=== PATIENT | male | born 1990 | race Hispanic/Latino ===

== ENCOUNTER 2021-09-07 06:49 | Day surgery (SDC) | payer OTHER ==
[2021-09-07] VITALS (16 sets, daily range): BP systolic 102–124; BP diastolic 48–68
[~2021-09-07] VITALS: Ht 175.3 cm; Wt 68.0 kg
[~2021-09-07 06:49] MED LIST: 0.9%NACL 1000ML 1,000 ML IV ONE
[2021-09-07] MEDS: INDOMETHACIN 50 MG SUPP.RECT RC SCH ×2 (09:10→13:37)
[2021-09-07] MEDS ORDERED: PROPOFOL 10 MG/ML 20ML VIAL IV ONE (12:37)
[2021-09-07] MEDS ORDERED: FENTANYL CITRATE PF 50 MCG/1 ML 2ML VIAL ONE (12:37)
[2021-09-07] MEDS ORDERED: SUCCINYLCHOLINE 200MG/10ML SYR ONE (12:39)
[2021-09-07] MEDS ORDERED: IOHEXOL-350 50ML VIAL IV ONE (13:02)
[2021-09-07] MEDS ORDERED: INDOMETHACIN 50 MG SUPP.RECT RC ONE (13:37)
== END 2021-09-07 15:45 | disposition home or self-care (01) ==
LOC: DAH 06:49 → ENDO 06:49
PROVIDERS: ATTEND Internal Medicine
DX: Z46.59 Encounter for fitting and adjustment of other gastrointestinal appliance and device (principal); Z20.822 Contact with and (suspected) exposure to COVID-19; K83.1 Obstruction of bile duct; K83.09 Other cholangitis; F17.210 Nicotine dependence, cigarettes, uncomplicated
CPT/HCPCS: 43261; 43262; 43275; 74328; 87635; A4215 ×2; A4221; A4222; A4223; A4606; A4620; A4663; C1769; C1773; C9803; J0330; J2704; J3010; J7030; Q9967; 43273; 74330

== ENCOUNTER 2025-07-28 15:42 | Emergency (ER) | payer SELFPAY ==
[~2025-07-28] VITALS: Ht 175.3 cm; Wt 77.1 kg
--- NOTE | 2025-07-28 15:57 | ERN ---
ED Note History of Present Illness Stated Complaint: CONSTIPATION Chief Complaint: Constipation Time Seen by MD: 15:46 Dictation: PATIENT IS A 35-YEAR-OLD MALE COMING IN TODAY WITH COMPLAINTS OF ABDOMINAL BLOATING CONSTIPATION WITH HAVING SMALL HARD STOOLS FOR THE LAST 1-1/2 MONTHS. HE STATES IN THE LAST SEVERAL DAYS HE HAS HAD NAUSEA WITHOUT VOMITING HOWEVER HE CONTINUES TO EAT. HE STATES HE HAS NOT SEEN A PRIMARY CARE DOCTOR HAS NOT BEEN TO A HOSPITAL, CONTINUES TO EAT AND DRINK TOLERATED. ADDITIONALLY HE STATES HE HAS NOT TAKEN ANYTHING [id number] FOR CONSTIPATION. DENIES ANY HISTORY OF A BARIATRIC SURGERIES NO ABDOMINAL SURGERIES. Allergies: Coded Allergies: No Known Drug Allergies (Verified Allergy, Unknown, 09/07/21) Home Meds No Active Prescriptions or Reported Meds Past Medical History Past Medical History: No Pertinent History Surgical History: None RN Note Reviewed/Agreed w/PFSH: Yes Review of System Dictation CONSTITUTIONAL: Negative except for HPI HEAD/FACE: Negative except for HPI EENT: Negative except for HPI RESPIRATORY: Negative except for HPI GASTROINTESTINAL/ABDOMINAL: Negative except for HPI abdominal bloating/ GENITOURINARY: Negative except for HPI MUSCULOSKELETAL: Negative except for HPI INTEGUMENTARY: Negative except for HPI NEUROLOGICAL/PSYCH: Negative except for HPI HEMATOLOGIC/LYMPHATIC: Negative except for HPI All Systems Negative, Except as noted above. 13 point review of systems assessed and all negative except for above. Initial Vital Sign VS Vital Signs Date Time Temp Pulse Resp B/P (MAP) Pulse Ox O2 Delivery O2 Flow Rate FiO2 07/28/25 15:43 98.1 76 16 118/68 100 Room Air 0 Physical Exam Dictation Vital Signs reviewed General Appearance: Alert, oriented x 3, mild acute distress, well developed, nourished. Head and Face: non-traumatic. Eyes: PERRL, pink conjunctivas, eyelid no trauma, anterior chamber with arcus senilis. Ears: Pinnas intact and no signs of trauma or erythema ear canals clear and no discharge TM no erythema Nose: No discharge, no bleeding. Oropharynx: Mouth normal, tongue pink, pharynx clear,no erythema, tonsils no exudates, no abscesses noted, mucous mem brane moist Neck: Supple, non-tender, no thyromegaly, no masses, no JVD, no bruits Breast:Deferred Chest:No tenderness, no crepitus, no paradoxical movement, no retractions Lungs:Clear, well-ventilated, symmetric, no rales, no wheezing, no rhonchi, no stridor, good breath sounds bilaterally Heart: Regular rate, regular rhythm, no murmur, no gallops Vascular: no peripheral edema, Abdomen: Soft, hypoactive bowel sounds, nondistended, no guarding, nontender, no rebound, no masses no hepatomegaly, no splenomegaly, no Salcedo's sign, no hernias. Rectal: Deferred Genital: Deferred Neurological: Normal speech, motor function intact, sensory function intact Musculoskeletal: Neck nontender, full range of motion, back nontender, full ran ge of motion, Extremities: nontender, full range of motion Skin: Color pink, dry, no turgor, no rash, no lacerations, no abrasions, no contusions. Lymphatic: Deferred Results (Laboratory/Radiology) Laboratory/Radiology Laboratory Tests Test 07/28/25 16:03 07/28/25 19:30 White Blood Count 7.6 K/uL (4.8-10.8) Red Blood Count 4.43 MIL/uL (4.50-6.20) L Hemoglobin 13.4 g/dL (14.0-18.0) L Hematocrit 39.4 % (42-54) L Mean Corpuscular Volume 88.9 fL (79-99) Mean Corpuscular Hemoglobin 30.2 pg (27.0-33.0) Mean Corpuscular Hemoglobin Concent 34.0 g/dL (32.0-36.0) Red Cell Distribution Width 13.2 % (11.0-15.5) Platelet Count 213 K/uL (130-400) Mean Platelet Volume 11.1 fL (7.5-10.5) H Immature Granulocyte % (Auto) 0.3 % (0-1) Neutrophils (%) (Auto) 64.6 % (40.0-77.0) Lymphocytes (%) (Auto) 25.1 % (21.0-51.0) Monocytes (%) (Auto) 7.7 % (3.0-13.0) Eosinophils (%) (Auto) 1.6 % (0.0-8.0) Basophils (%) (Auto) 0.7 % (0.0-5.0) Neutrophils # (Auto) 4.9 K/uL (1.8-7.7) Lymphocytes # (Auto) 1.9 K/uL (1.0-4.8) Monocytes # (Auto) 0.6 K/uL (0.1-1.0) Eosinophils # (Auto) 0.12 K/uL (0.00-0.70) Basophils # (Auto) 0.05 K/uL (0.00-0.20) Absolute Immature Granulocyte (auto 0.02 K/uL (0-1) Nucleated Red Blood Cells 0.0 % (0.0-0.19) Sodium Level 139 mmol/L (136-145) Potassium Level 3.8 mmol/L (3.5-5.1) Chloride Level 101 mmol/L (101-111) Carbon Dioxide Level 30 mmol/L (21-32) Blood Urea Nitrogen 17 mg/dL (7-18) Creatinine 0.9 mg/dL (0.5-1.3) Glomerular Filtration Rate Calc 116 mL/min (>90) Random Glucose 106 mg/dL (70-105) H Total Calcium 8.8 mg/dL (8.5-10.1) Urine Color YELLOW (YELLOW) Urine Appearance CLEAR (CLEAR) Urine pH 6.0 (5.0-8.0) Urine Specific [place] 1.030 (1.001-1.031) Urine Protein NEGATIVE mg/dL (NEGATIVE) Urine Glucose (UA) NEGATIVE mg/dL (NEGATIVE) Urine Ketones NEGATIVE mg/dL (NEGATIVE) Urine Occult Blood NEGATIVE (NEGATIVE) Urine Nitrate NEGATIVE (NEGATIVE) Urine Bilirubin NEGATIVE mg/dL (NEGATIVE) Urine Urobilinogen 0.2 mg/dL (0.2-1.0) Urine Leukocyte Esterase NEGATIVE [place]/uL AM: CR Abdomen, 2 View. CLINICAL HISTORY: CONSTIPATION WITH BLOATING FOR THE LAST MONTH. COMPARISON: None provided. FINDINGS: BOWEL: The bowel gas pattern is within normal limits. Abundant colonic fecal matter may reflect constipation. PERITONEUM/SOFT TISSUES: No free air evident. No pathologic appearing calcification. BONES: No acute osseous abnormality. IMPRESSION: The bowel gas pattern is within normal limits. /[facility] Labs Reviewed?: Yes ED Course ED Course Orders Procedure Category Date Status Time Cbc With Differential LAB 07/28/25 Complete 15:55 Urinalysis Profile LAB 07/28/25 Complete 15:55 Basic Metabolic Panel LAB 07/28/25 Complete 15:55 Abd 1vw RAD 07/28/25 Resulted 15:55 Vital Signs Date Time Temp Pulse Resp B/P (MAP) Pulse Ox O2 Delivery O2 Flow Rate FiO2 07/28/25 15:43 98.1 76 16 118/68 100 Room Air 0 Medical Decision Making [facility] 1945/medical decision-making based on basic labs and KUB for constipation abdominal bloating. Labs are completely unremarkable KUB demonstrates a normal gas pattern. Patient will be discharged home with GoLYTELY for acute constipation Told to see his primary care doctor for follow up DX & DISP Disposition: Discharge Departure Impression: Primary Impression: Acute constipation Additional Impression: Gas pain Condition: Stable Scripts Peg 3350/Na Sulf,Bicarb,Cl/KCl (Golytely/Colyte Soln) 236-22.74G Soln 4000 ML PO AD, #1 BOTTLE Mixed bottle as directed with water. Drink one cup every 10 minutes until stools are clear. Prov: AUNG CORDOBA NP 07/28/25 Additional Instructions: Follow-up with primary care provider in 1 to 2 days. Take medications as directed here in the emergency room. Okay to continue home medications unless otherwise discussed during your visit in the emergency room today. Return to your nearest emergency room if symptoms worsen or if there is no improvement. Call 911 if you need immediate assistance. Take Tylenol or Motrin [id number] as needed and if no contraindications are present. Increase oral hydration. A wound culture or urine culture was ordered here in the emergency room department please follow-up with primary care provider and advise them to get repeat ports from our facility. If you had any Abdi wrap/splints that were applied here, please do not remove them until you see your primary care or specialty. Increase your water intake. Use GoLYTELY as directed and take one cup every 10 minutes until stools are clear. Follow up with java lead developer needed, call for an appointment. Referrals: SELF,REFERRAL (PCP) SHAWNEE ALEJO MD Time of Disposition: 19:48 I have reviewed the case, and I agree with, Diagnosis and Plan AUNG CORDOBA NP Jul 28, 2025 15:57
[2025-07-28 16:15] LABS: IMMATURE GRANULOCYTE ABSOLUTE 0.02 K/uL (0-1); NUCLEATED RED BLOOD CELLS 0.0 % (0.0-0.19); PLATELET COUNT (AUTO) 213 K/uL (130-400); RED BLOOD CELL COUNT(AUTO) 4.43 MIL/uL (4.50-6.20); RED CELL DISTRIBUTION WIDTH 13.2 % (11.0-15.5); WHITE BLOOD COUNT (AUTO) 7.6 K/uL (4.8-10.8)
[2025-07-28 16:23] LABS: CREATININE 0.9 mg/dL (0.5-1.3); GLOMERULAR FILTR. RATE CALC 116.0 mL/min (>90); GLUCOSE,RANDOM 106.0 mg/dL (70-105); SODIUM SERUM 139.0 mmol/L (136-145); UREA NITROGEN, BLOOD 17.0 mg/dL (7-18)
--- NOTE | 2025-07-28 17:09 | HMCIMG ---
EXAM: CR Abdomen, 2 View. CLINICAL HISTORY: CONSTIPATION WITH BLOATING FOR THE LAST MONTH. COMPARISON: None provided. FINDINGS: BOWEL: The bowel gas pattern is within normal limits. Abundant colonic fecal matter may reflect constipation. PERITONEUM/SOFT TISSUES: No free air evident. No pathologic appearing calcification. BONES: No acute osseous abnormality. IMPRESSION: The bowel gas pattern is within normal limits. /[place]
[2025-07-28 19:41] LABS: APPEARANCE,URINE CLEAR (CLEAR); GLUCOSE, URINE (UA) NEGATIVE (NEGATIVE); LEUKOCYTE ESTERASE ,URINE NEGATIVE Leu/uL (NEGATIVE); NITRATE,URINE NEGATIVE (NEGATIVE); OCCULT BLOOD,URINE NEGATIVE (NEGATIVE)
[2025-07-28 19:45] LABS: ADD UA MICROSCOPIC NO
[2025-07-28] MEDS ORDERED: GOLY4L PO (19:50)
[2025-07-28 19:54] VITALS: BP 118/68; PULSE 76; RESP 18; TEMP 98.1; O2SAT 99
== END 2025-07-28 20:03 | disposition home or self-care (01) ==
LOC: EDH 15:42
DX: K59.09 Other constipation (principal); R14.1 Gas pain
CPT/HCPCS: 36415; 74018; 80048; 81003; 85025; 99284